=== PATIENT | female | born 1970 | race African-American/Black ===

== ENCOUNTER 2019-04-12 09:59 | Outpatient (CLI) | payer OTHER | END 2019-04-12 10:00 | disposition home or self-care (01) | LOC: DTY/OP 09:59 | PROVIDERS: ATTEND Specialist | DX: Z01.818 Encounter for other preprocedural examination (principal); E66.01 Morbid (severe) obesity due to excess calories | CPT/HCPCS: 97802 ==

== ENCOUNTER 2019-05-13 15:15 | Outpatient (CLI) | payer MEDICARE ==
--- NOTE | 2019-05-13 17:08 | MMO ---
Bilateral MAMMO Bilat Screen [facility]. CLINICAL HISTORY: Patient is 48 years old and is seen for screening. The patient has no family history of breast cancer. The patient has no personal history of cancer. VIEWS: The views performed were: bilateral craniocaudal with tomosynthesis and bilateral mediolateral oblique with tomosynthesis. This study has been interpreted with the assistance of computer-aided detection. MAMMOGRAM FINDINGS: There are scattered fibroglandular densities. There is an oval mass measuring 13 millimeters seen in the upper-outer region of the left breast. In the right breast, there are no suspicious masses, calcifications or areas of architectural distortion. IMPRESSION: MASS IN THE LEFT BREAST REQUIRES ADDITIONAL EVALUATION. AN ULTRASOUND EXAM IS RECOMMENDED. THE RESULTS OF THIS EXAM WERE SENT TO THE PATIENT. ACR BI-RADS Category 0 - Incomplete: Need additional imaging evaluation. [facility] will notify the patient of the need for additional imaging services. MAMMOGRAPHY NOTE: 1. A negative mammogram report should not delay a biopsy if a dominant of clinically suspicious mass is present. 2. Approximately 10% to 15% of breast cancers are not detected by mammography. 3. Adenosis and dense breasts may obscure an underlying neoplasm. Reported by: MARY BETH DORSEY MD Electonically Signed: [id number]
== END 2019-05-13 15:16 | disposition home or self-care (01) ==
LOC: BICMAMMO 15:15
PROVIDERS: ATTEND Family Medicine
DX: Z12.31 Encounter for screening mammogram for malignant neoplasm of breast (principal); N63.21 Unspecified lump in the left breast, upper outer quadrant
CPT/HCPCS: 77063; 77067

== ENCOUNTER 2019-05-17 10:36 | Outpatient (CLI) | payer MEDICARE ==
--- NOTE | 2019-05-17 11:51 | ULT ---
LIMITED LEFT BREAST ULTRASOUND: DATE: 05/17/2019. PROVIDED CLINICAL HISTORY: Abnormal screening mammogram. FINDINGS: Limited sonographic interrogation is performed of the left breast in the region of concern on the scr eening mammogram of 05/13/2019. Screening mammographic images were reviewed and correlated with sonog nicki performed today. A 1.3 cm intramammary lymph node is seen at the 2 o'clock position of the lef t breast, corresponding to the mammographic abnormality. IMPRESSION: BIRADS category 2 - benign findings. Annual screening mammography recommended. POS: OFF
== END 2019-05-17 10:37 | disposition home or self-care (01) ==
LOC: BICULT 10:36
PROVIDERS: ATTEND Family Medicine
DX: N63.20 Unspecified lump in the left breast, unspecified quadrant (principal)

== ENCOUNTER 2019-07-02 08:21 | Outpatient (CLI) | payer MEDICARE ==
[2019-07-02 12:21] LABS: Hemoglobin 17.2 g/dL (12.0-16.0); Mean Corpuscular HGB CONC 30.6 g/dL (32.0-36.0); Mean Corpuscular Hemoglobin 28.6 pg (27.0-31.0); Mean Corpuscular Volume 93.3 fL (78.0-98.0); Mean Platelet Volume 11.8 fL (7.4-10.4); Platelet Count 171 thou/uL (130-400); RBC Distribution Width 15.9 % (11.5-14.5); Red Blood Cell (RBC) Count 6.03 mill/uL (4.20-5.40); White Blood Cell (WBC) Count 6.5 thou/uL (4.8-10.8)
[2019-07-02 12:42] LABS: Anion Gap 13 mmol/L (10-20); BUN (Urea Nitrogen) 10 mg/dL (7.0-18.7); Calc. Creatinine Clearance 0 mL/min (70-130); Carbon Dioxide 29 mmol/L (22-29); Chloride 103 mmol/L (98-107); Estimated GFR-MDRD Greater than 90; Glucose 87 mg/dL (70-105); Potassium 3.8 mmol/L (3.5-5.1); Sodium 141 mmol/L (136-145)
--- NOTE | 2019-07-05 18:56 | EKG ---
Test Reason : Blood Pressure : / mmHG Vent. Rate : 065 BPM Atrial Rate : 065 BPM P-R Int : 224 ms QRS Dur : 092 ms QT Int : 432 ms P-R-T Axes : 072 098 016 degrees QTc Int : 449 ms Electronic atrial pacemaker Rightward axis Borderline ECG No previous ECGs available Confirmed by DR. Argentina MORALES MD ([id number]) on 07/05/2019 6:56:45 PM Referred By: CHRISTOPHER Confirmed By:DR. Argentina MORALES MD
== END 2019-07-02 08:22 | disposition home or self-care (01) ==
LOC: LABBT 08:21
PROVIDERS: ATTEND Specialist
DX: Z01.818 Encounter for other preprocedural examination (principal); E66.01 Morbid (severe) obesity due to excess calories
CPT/HCPCS: 80048; 85027; 93005; 93010

== ENCOUNTER 2019-07-02 10:00 | Inpatient (IN) | payer MEDICARE ==
[2019-07-02 11:17] VITALS: BMI 56.8
[2019-07-06] MEDS ORDERED: Ketorolac Tromethamine 30 MG/ML VIAL ONE (06:17)
[2019-07-06] MEDS ORDERED: ceFOXitin 2 GM/50 ML Duplex BAG ONE (06:17)
[2019-07-06] MEDS ORDERED: Heparin 5,000 UNITS/ML VIAL ONE (06:17)
[2019-07-06] MEDS ORDERED: Scopolamine 1.5 mg/72 hour Patch ONE (06:17)
[2019-07-06] MEDS ORDERED: Lidocaine 1% w/Epinephrine 1:100K 20 ML VIAL ONE (06:55)
[2019-07-06] MEDS ORDERED: Bupivacaine 0.25% HCL 30 ML VIAL ONE (06:55)
[2019-07-06] MEDS ORDERED: Fentanyl 100 MCG/2 ML VIAL ONE ×4 (06:56→13:53)
[2019-07-06] MEDS ORDERED: Acetaminophen 500 MG TAB ONE (07:07)
[2019-07-06] MEDS ORDERED: HYDROmorphone 0.5 MG/0.5 ML SYRINGE ONE (07:24)
[2019-07-06] MEDS ORDERED: PHENYLEPHRINE-NS 100 MCG/ML 10 ML SYRINGE ONE ×2 (08:39→11:51)
[2019-07-06] MEDS ORDERED: ePHEDrine/0.9% NaCl/PF SYRINGE 50 mg/10 ml ONE ×2 (08:39→11:51)
[2019-07-06] MEDS ORDERED: SUGAMMADEX SODIUM 200 MG/2 ML VIAL ONE (09:00)
[2019-07-06] MEDS ORDERED: Promethazine HCl 25 MG/ML VIAL ONE (10:05)
[2019-07-06] MEDS ORDERED: Ondansetron PF 4 MG/2 ML Vial ONE ×2 (10:05→11:51)
[2019-07-06] MEDS ORDERED: Promethazine HCl 25 MG/ML VIAL IM PRN (11:02)
[2019-07-06] MEDS ORDERED: Promethazine HCl 25 MG/ML VIAL SLOW IVP PRN (11:02)
[2019-07-06] MEDS ORDERED: Ondansetron HCl/PF 4 MG/2 ML Vial IVP PRN (11:02)
[2019-07-06] MEDS ORDERED: D5 1/2 NS w/20 mEq KCL 1,000 ML ONE (11:37)
[2019-07-06] MEDS ORDERED: Rocuronium Bromide 10 MG/ML (10ML VIAL) ONE (11:51)
[2019-07-06] MEDS ORDERED: Dexamethasone 20 MG/5 ML VIAL ONE (11:51)
[2019-07-06] MEDS ORDERED: PROPOFOL 200 MG/20 ML VIAL ONE (11:51)
[2019-07-06] MEDS ORDERED: Lidocaine 1% PF 5 ML VIAL ONE (11:51)
--- NOTE | 2019-07-06 13:46 | OP ---
DATE OF PROCEDURE: 07/06/2019 PREOPERATIVE DIAGNOSIS: Morbid obesity. POSTOPERATIVE DIAGNOSIS: Morbid obesity. PROCEDURE PERFORMED: Laparoscopic vertical sleeve gastrectomy using the ViSiGi device. ANESTHESIA: General endotracheal. UROLOGY PHYSICIAN: Mame Medellin, medical student. INDICATIONS: The patient is a 48-year-old morbidly obese black female. She has a preoperative BMI of 57. She was taken to the operating room at this time for weight loss surgery. DESCRIPTION OF OPERATION: Informed consent was obtained. The patient was taken to the operating room where general endotracheal anesthesia was obtained with the patient in supine position. Abdomen was prepped with ChloraPrep and draped in sterile fashion. Local anesthetic was infiltrated and 5 mm supraumbilical incision was created through which Veress needle was passed to the peritoneal cavity and pneumoperitoneum established using carbon dioxide up to a pressure of 15 mmHg. A 5 mm trocar port was passed through this same incision. Laparoscopic camera was passed through this port. Under direct vision, 4 additional ports were placed including bilateral 5 mm subcostal ports, a 12 mm right paramedian port and a 15 mm left paramedian port. A 5 mm epigastric incision was created through which Nathansen retractor was passed into the abdominal cavity and used to retract the left lobe of the liver. The patient was placed into reverse Trendelenburg position. The ViSiGi device was advanced within the stomach and used to decompress this. The pylorus was identified and beginning 4 cm proximal to the pylorus, the omentum and vascular tissue along the greater curvature was divided using the LigaSure in an ascending fashion up to the angle of His. All posterior adhesions were mobilized. The short gastric vessels were carefully divided and then hemostasis was maintained using the LigaSure. Once this was completely mobilized, the ViSiGi was carefully positioned at the level of the pylorus and placed to suction, which was clearly defining the lesser curvature of the stomach. The gastrectomy was then performed using a series of fires of the [place] stapler using a green load followed by a gold load and a series of blue loads until completion of the gastrectomy. The ViSiGi along the lesser curvature was used as a size 36 bougie to guide in the gastric division. Care was taken to avoid narrowing the incisura or the gastroesophageal junction. The integrity of the staple line was then assessed by insufflating gas through the ViSiGi while irrigating along the staple line. There was no evidence of an air leak. There was no evidence of bleeding along the staple line. The resected stomach was then removed through the 15 mm port and the fascia was closed with 0 Vicryl suture using a GraNee needle. I then closed the 12 mm port also using the GraNee needle and 0 Vicryl suture. The Nathansen retractor was removed. All ports and instruments were removed under direct vision. All irrigant was aspirated. Pneumoperitoneum was carefully evacuated. 0.25% Marcaine with epinephrine was infiltrated into each port site. Skin edges approximated with 4-0 Monocryl subcuticular suture. Dermabond was placed externally. There were no complications. The patient tolerated the procedure well and was taken to recovery room in stable condition. FINDINGS: The patient had a markedly enlarged liver. It did not have fatty changes as she had lost a substantial amount of weight preoperatively, however, the liver draped extensively down over the stomach. There were also unusual amounts of vascularity along the greater curvature, in the retroperitoneum, and a band connecting the duodenum to the liver on the anterior aspect. Each of these required more work than typical to obtain appropriate hemostasis during the course of division. She did not have markedly enlarged vessels that would be typical of portal hypertension. The operation was performed safely with a total of approximately 100 mL of blood loss. There was complete hemostasis at the end of the operation. There were no complications. The patient was stable and tolerated the procedure well, taken to the recovery in stable condition. Job ID: [id number]
[2019-07-06] MEDS ORDERED: Morphine 2 MG/ML SYRINGE SLOW IVP PRN (14:48)
[2019-07-06] MEDS ORDERED: Dextrose 5% in Water 1,000 ML IV PRN (14:48)
[2019-07-06] MEDS ORDERED: diphenhydrAMINE 50 MG/ML VIAL IVP PRN (14:48)
[2019-07-06] MEDS ORDERED: Dextrose 50% Abboject 50 ML SYRINGE SLOW IVP PRN (14:48)
[2019-07-06] MEDS ORDERED: D5 1/2 NS w/20 mEq KCL 1,000 ML IV SCH (14:48)
[2019-07-06] MEDS ORDERED: hydrALAZINE 20 MG/ML VIAL SLOW IVP PRN (14:48)
[2019-07-06] MEDS: Morphine 4 MG/ML VIAL SLOW IVP PRN ×2 (15:25→19:24)
[2019-07-06] MEDS ORDERED: Pantoprazole 40 MG VIAL IVP SCH (15:30)
[2019-07-06] MEDS: Promethazine HCl 25 MG/ML VIAL IM PRN ×2 (15:31→19:24)
[2019-07-06] MEDS: Ketorolac Tromethamine 30 MG/ML VIAL IVP SCH ×2 (17:54→23:42)
[2019-07-06] MEDS ORDERED: Sodium Chloride 0.9% 1,000 ML IV SCH (21:00)
[2019-07-06 21:10] LABS: #Lymphocytes 0.5 thou/uL (1.20-3.40); #Monocytes 0.2 thou/uL (0.11-0.59); #Neutrophils 10.1 thou/uL (1.40-6.50); %Basophils 0.2 % (0.0-1.0); %Eosinophils 0.3 % (0.0-10.0); %Lymphocytes 4.5 % (21.0-51.0); %Monocytes 1.7 % (0.0-10.0); %Neutrophils 93.2 % (42.0-75.0); Hemoglobin 15.4 g/dL (12.0-16.0); Mean Corpuscular HGB CONC 31.2 g/dL (32.0-36.0); Mean Corpuscular Hemoglobin 29.8 pg (27.0-31.0); Mean Corpuscular Volume 95.5 fL (78.0-98.0); Mean Platelet Volume 10.7 fL (7.4-10.4); Platelet Count 143 thou/uL (130-400); RBC Distribution Width 14.9 % (11.5-14.5); Red Blood Cell (RBC) Count 5.15 mill/uL (4.20-5.40); White Blood Cell (WBC) Count 10.9 thou/uL (4.8-10.8)
[2019-07-06 21:25] LABS: Anion Gap 12 mmol/L (10-20); BUN (Urea Nitrogen) 14 mg/dL (7.0-18.7); Calc. Creatinine Clearance 184 mL/min (70-130); Calcium 7.7 mg/dL (7.8-10.44); Carbon Dioxide 28 mmol/L (22-29); Chloride 101 mmol/L (98-107); Estimated GFR-MDRD 84; Glucose 194 mg/dL (70-105); Potassium 3.6 mmol/L (3.5-5.1); Sodium 137 mmol/L (136-145)
[2019-07-06] MEDS: NS 0.9% w/ 20 MEQ KCL 1,000 ML IV SCH (21:58)
[2019-07-06] MEDS: Enoxaparin Sodium 40 MG/0.4 ML SYRINGE SC SCH (22:19)
[2019-07-07] MEDS: NS 0.9% w/ 20 MEQ KCL 1,000 ML IV SCH ×4 (03:05→23:24)
[2019-07-07 05:30] LABS: #Lymphocytes 0.9 thou/uL (1.20-3.40); #Monocytes 0.6 thou/uL (0.11-0.59); #Neutrophils 10.3 thou/uL (1.40-6.50); %Basophils 0.1 % (0.0-1.0); %Lymphocytes 7.2 % (21.0-51.0); %Monocytes 4.9 % (0.0-10.0); %Neutrophils 87.8 % (42.0-75.0); Hemoglobin 15.6 g/dL (12.0-16.0); Mean Corpuscular HGB CONC 29.3 g/dL (32.0-36.0); Mean Corpuscular Hemoglobin 28.5 pg (27.0-31.0); Mean Corpuscular Volume 97.4 fL (78.0-98.0); Mean Platelet Volume 10.8 fL (7.4-10.4); Platelet Count 156 thou/uL (130-400); RBC Distribution Width 14.8 % (11.5-14.5); Red Blood Cell (RBC) Count 5.45 mill/uL (4.20-5.40); White Blood Cell (WBC) Count 11.8 thou/uL (4.8-10.8)
[2019-07-07 05:43] LABS: Anion Gap 12 mmol/L (10-20); BUN (Urea Nitrogen) 12 mg/dL (7.0-18.7); Calc. Creatinine Clearance 208 mL/min (70-130); Calcium 7.5 mg/dL (7.8-10.44); Carbon Dioxide 27 mmol/L (22-29); Chloride 105 mmol/L (98-107); Estimated GFR-MDRD Greater than 90; Glucose 106 mg/dL (70-105); Potassium 4.7 mmol/L (3.5-5.1); Sodium 139 mmol/L (136-145)
[2019-07-07] MEDS: Ketorolac Tromethamine 30 MG/ML VIAL IVP SCH ×4 (05:54→23:24)
--- NOTE | 2019-07-07 06:03 | PDOC.GSPN ---
Surgery Progress Note: Subj - Subjective Narrative: Mrs. Jordan is POD 1 from a laparoscopic sleeve gastrectomy. Her nurse reports that overnight she became hypotensive after a dose of morphine. She was given 1 L NS with 20 mEq KCl and since then she has remained normotensive. She is currently not receiving any IV fluids. Overnight, her nurse also reports that her O2 sat dropped into the 70s while she was sleeping despite being on CPAP. This morning, she was resting comfortably. She reports that her pain is a 7/10 and increases to 10/10 with movement. Nurse has been holding morphine to avoid dropping her BP again and she is currently only receiving IV Toradol. She reports some nausea when eating broth, but denies any nausea. She was able to ambulate several laps yesterday, but had to stop once to rest due to dizziness. She is voiding without difficulty and has not yet had a bowel movement. Surgery Progress Note: Obj - Vital signs Vital signs: Vital Signs - Most Recent Temp Pulse Resp BP Pulse Ox 97.5 F L 75 16 115/74 98 07/07/19 03:36 07/07/19 03:36 07/07/19 03:36 07/07/19 03:36 07/07/19 03:36 - Physical Exam General: no distress, obese Cardiovascular: regular rate and rhythm, no murmur Respiratory: clear to auscultation, normal respiratory effort (on CPAP) Abdomen: soft, nondistended (obese abdomen), positive bowel sounds (NABS), appropriately tender Wound: healing well. negative: drainage, erythma/edema (all incisions healing appropriately and) Surgery Progress Note: Results - Labs Result Diagrams: 07/07/19 05:07 07/07/19 05:06 Surgery Progress Note: A/P - Problem (1) S/P laparoscopic sleeve gastrectomy Current Visit: Yes Code(s): Z98.84 - BARIATRIC SURGERY STATUS Status: Acute - Plan Plan: Patient is POD 1 from laparoscopic sleeve gastrectomy. Her BP and O2 sat appear to have stabilized at this point. Plan to continue monitoring this throughout the day and replace fluids as needed to maintain BP. We will avoid morphine at this time to prevent another hypotensive episode and add PO Tylenol in addition to her IV Toradol for pain control. We will continue her bariatric clear liquid diet and offer Zofran prn for nausea. Patient to continue ambulating today. Will continue prophylactic Lovenox SC while she is here. Plan to monitor patient today with the potential of discharging later today if her pain, nausea , and BP remain stable. If not, we will keep patient here until tomorrow and plan for discharge at that time.
[2019-07-07] MEDS ORDERED: traMADol HCl 50 MG TAB PO PRN ×2 (06:22)
[2019-07-07] MEDS ORDERED: Acetaminophen 650 MG/20.3 ML UDCUP PO PRN (06:23)
[2019-07-07] MEDS: Isosorbide Dinitrate 20 MG TAB PO SCH (08:06)
[2019-07-07] MEDS: Aspirin Chewable 81 MG TAB PO SCH (08:54)
[2019-07-07] MEDS: Pantoprazole 40 MG VIAL IVP SCH (08:55)
[2019-07-07] MEDS ORDERED: Isosorbide Dinitrate 20 MG TAB PO SCH (09:00)
[2019-07-07] MEDS ORDERED: Carvedilol 6.25 MG TAB PO SCH ×2 (09:00)
[2019-07-07] MEDS: Ondansetron PF 4 MG/2 ML Vial IVP PRN ×3 (10:05→18:37)
[2019-07-07] MEDS: Furosemide 20 MG TAB PO SCH (10:28)
--- NOTE | 2019-07-07 13:36 | PRG ---
DATE OF SERVICE: 07/07/2019 Ms. Jordan is postoperative day #1 from an uneventful laparoscopic sleeve gastrectomy yesterday. Please see progress note from medical student, Vignesh, earlier today. In summary, she was hypotensive overnight, but her blood pressure responded nicely to fluid bolus and she was stable for the rest of the evening. This morning, on examination, she had a benign abdomen and seemed to be clinically stable. Her laboratory studies both last night and this morning were unremarkable. Her IV fluids were dropped down to 100 mL/h this morning. She has had some difficulty advancing her diet to appropriate volumes. She has been walking on the floor somewhat. In light of her hypotension last night, I believe she would be better served by observation today to ensure that she is stable prior to discharge. I will continue to encourage her to take her clear liquids and ambulate and will follow up with laboratory studies in the morning as well. Hopefully, she will be stable for discharge home in the morning. Job ID: [id number]
[2019-07-07] MEDS: Enoxaparin Sodium 40 MG/0.4 ML SYRINGE SC SCH (20:38)
[2019-07-08] MEDS: Ondansetron PF 4 MG/2 ML Vial IVP PRN (02:54)
[2019-07-08 05:29] LABS: Anion Gap 12 mmol/L (10-20); BUN (Urea Nitrogen) 14 mg/dL (7.0-18.7); Calc. Creatinine Clearance 235 mL/min (70-130); Calcium 7.5 mg/dL (7.8-10.44); Carbon Dioxide 25 mmol/L (22-29); Chloride 109 mmol/L (98-107); Estimated GFR-MDRD Greater than 90; Glucose 84 mg/dL (70-105); Potassium 4.4 mmol/L (3.5-5.1); Sodium 142 mmol/L (136-145)
[2019-07-08 05:35] LABS: #Lymphocytes 1.2 thou/uL (1.20-3.40); #Monocytes 0.8 thou/uL (0.11-0.59); %Basophils 0.1 % (0.0-1.0); %Eosinophils 0.4 % (0.0-10.0); %Lymphocytes 13.3 % (21.0-51.0); %Monocytes 8.6 % (0.0-10.0); %Neutrophils 77.6 % (42.0-75.0); Hemoglobin 14.6 g/dL (12.0-16.0); Mean Corpuscular HGB CONC 30.7 g/dL (32.0-36.0); Mean Corpuscular Hemoglobin 29.7 pg (27.0-31.0); Mean Corpuscular Volume 96.7 fL (78.0-98.0); Mean Platelet Volume 11.3 fL (7.4-10.4); Platelet Count 113 thou/uL (130-400); RBC Distribution Width 14.7 % (11.5-14.5); Red Blood Cell (RBC) Count 4.91 mill/uL (4.20-5.40); White Blood Cell (WBC) Count 9.1 thou/uL (4.8-10.8)
[2019-07-08] MEDS: Ketorolac Tromethamine 30 MG/ML VIAL IVP SCH ×2 (06:23→11:57)
[2019-07-08] MEDS: Aspirin Chewable 81 MG TAB PO SCH (09:01)
[2019-07-08] MEDS: Isosorbide Dinitrate 20 MG TAB PO SCH (09:01)
[2019-07-08] MEDS: Furosemide 20 MG TAB PO SCH (09:01)
[2019-07-08] MEDS: Pantoprazole 40 MG VIAL IVP SCH (09:01)
--- NOTE | 2019-07-08 09:35 | DIS ---
DATE OF ADMISSION: 07/06/2019 DATE OF DISCHARGE: 07/08/2019 ADMISSION HISTORY: The patient is a 48-year-old morbidly obese black female with a BMI of 57 at the time of admission. HOSPITAL COURSE: She underwent uneventful sleeve gastrectomy on the morning of her admission. However, later that day, she developed hypotension. This resolved with fluid administration and the etiology appeared to be hypovolemia. She has subsequently been stable. Her blood pressure has been within normal limits in spite of discontinuing her antihypertensives. She has been able to ambulate and tolerate liquids without vomiting. She has remained hemodynamically stable. Her laboratory studies remain within normal limits and her hemoglobin was 15 yesterday and is 14 today. Her electrolytes are also normal. She has felt to be doing well at this point and is stable for discharge home. She was given extensive instructions regarding fluid intake and ambulation. In regard to her discharge medications, I asked her to discontinue her furosemide and her isosorbide dinitrate that she was taking when she was admitted to the hospital. She is to continue her carvedilol and her aspirin. I will see her in my office in 2 weeks for followup. She was given a prescription for tramadol for discharge. Job ID: [id number]
[2019-07-08 17:00] VITALS: BP 110/65; TEMP 97.4
== END 2019-07-08 17:14 | disposition home or self-care (01) | DRG 621 ==
LOC: SURG A 07-06 05:53 → SURG B 07-06 14:49
PROVIDERS: ADMIT Specialist; ATTEND Specialist
PROC: 0DB64Z3 Excision of Stomach, Percutaneous Endoscopic Approach, Vertical (ICD-10-PCS; principal; 2019-07-06)
DX: E66.01 Morbid (severe) obesity due to excess calories (principal); Z68.43 Body mass index [BMI] 50.0-59.9, adult; I95.9 Hypotension, unspecified; E86.1 Hypovolemia; R16.0 Hepatomegaly, not elsewhere classified
CPT/HCPCS: 36415; 80048; 85025; 88307; 88312; C9113; J0694; J1100; J1170; J1644; J1650; J1885; J2001; J2270; J2405; J2550; J2704; J3010; J3480; S0020

== ENCOUNTER 2019-09-22 17:02 | Emergency (ER) | payer MEDICARE ==
[~2019-09-22 17:02] MED LIST: Iopamidol 370 76% 50 ML VIAL FS ONE; Iopamidol-370 76% 500 ML 1 ML ONE
[2019-09-22 17:53] LABS: #Basophils 0.1 thou/uL (0.0-0.2); #Eosinphils 0.1 thou/uL (0.0-0.7); #Lymphocytes 1.8 thou/uL (1.20-3.40); #Monocytes 0.5 thou/uL (0.11-0.59); #Neutrophils 2.7 thou/uL (1.40-6.50); %Basophils 2.6 % (0.0-1.0); %Eosinophils 1.1 % (0.0-10.0); %Lymphocytes 35.2 % (21.0-51.0); %Monocytes 9.9 % (0.0-10.0); %Neutrophils 51.3 % (42.0-75.0); Hemoglobin 13.7 g/dL (12.0-16.0); Mean Corpuscular HGB CONC 31.5 g/dL (32.0-36.0); Mean Corpuscular Hemoglobin 30.5 pg (27.0-31.0); Mean Corpuscular Volume 96.9 fL (78.0-98.0); Mean Platelet Volume 9.2 fL (7.4-10.4); Platelet Count 199 thou/uL (130-400); RBC Distribution Width 12.7 % (11.5-14.5); Red Blood Cell (RBC) Count 4.47 mill/uL (4.20-5.40); White Blood Cell (WBC) Count 5.2 thou/uL (4.8-10.8)
[2019-09-22] MEDS ORDERED: Ondansetron PF 4 MG/2 ML Vial ONE (18:09)
[2019-09-22] MEDS ORDERED: Fentanyl 100 MCG/2 ML VIAL ONE (18:09)
[2019-09-22 18:13] LABS: ALT (SGPT) 23 U/L (8-55); AST (SGOT) 26 U/L (5-34); Albumin 4.1 g/dL (3.5-5.0); Alkaline Phosphatase 54 U/L (40-110); Anion Gap 18 mmol/L (10-20); BUN (Urea Nitrogen) 16 mg/dL (7.0-18.7); Bilirubin, Total 1.5 mg/dL (0.2-1.2); Calc. Creatinine Clearance 0 mL/min (70-130); Calcium 9.7 mg/dL (7.8-10.44); Carbon Dioxide 30 mmol/L (22-29); Chloride 96 mmol/L (98-107); Estimated GFR-MDRD 63; Globulin 3.9 g/dL (2.4-3.5); Glucose 84 mg/dL (70-105); Lipase 56 U/L (8-78); Sodium 141 mmol/L (136-145)
[2019-09-22 18:17] LABS: Potassium 2.7 mmol/L (3.5-5.1)
--- NOTE | 2019-09-22 19:09 | CT ---
CT chest with IV contrast CT abdomen and pelvis with IV contrast HISTORY: Pain. FINDINGS: No focal parenchymal lung mass or infiltrate. Tiny nonspecific subpleural groundglass nodul e at the left lateral lung base. Left subclavian cardiac electronic device partially visualized. No mediastinal adenopathy. Bovine origin of the great vessels at the aortic arch. Large amount of oral contrast is apparent throughout the esophagus. Postoperative changes of the stom ach may represent bariatric surgery. A 1.8 cm cyst is present at the medial segment left liver lobe near the falciform ligament. Additiona l tiny low-density lesions scattered throughout the liver are too small to characterize and likely represent additional cysts. Small amount of hyperdense material present within the dependent portion of the gallbladder lumen. No evidence of inflammation. There are tiny calcifications associated with nondilated calyces of each kidney, none larger than 2 m m. Small amount of fat into an umbilical hernia that does not contain bowel. Uterus measures up to 12.8 cm and demonstrates heterogeneous density and contour with the appearance of multiple fibroids. No evidence of bowel obstruction or inflammation. Appendix normal. IMPRESSION : Bariatric surgery. Large amount of gastroesophageal reflux. No evidence of bowel obstruction. Tiny nonobstructing bilateral renal calculi. Prominent fibroid involvement of the enlarged uterus.
[2019-09-22] MEDS ORDERED: Multivitamins, Adult 10 ML, Thiamine HCl 100 MG, Folic Acid 1 MG in Dextrose 5 %-0.45 %... IV SCH (19:15)
[2019-09-22] MEDS ORDERED: FOLIC ACID IV SCH (19:30)
[2019-09-22] MEDS ORDERED: THIAMINE HCL IV SCH (19:30)
[2019-09-22] MEDS ORDERED: MULTIVITAMINS IV SCH (19:30)
[2019-09-22] MEDS ORDERED: [UNRECOGNIZED DRUG - OTHER] IV SCH (19:30)
[2019-09-22] MEDS ORDERED: Metoclopramide HCl 10 MG/2 ML VIAL ONE (20:17)
[2019-09-22] MEDS ORDERED: Potassium Chloride 20 MEQ TAB ONE (21:05)
--- NOTE | 2019-09-25 09:49 | EKG ---
Test Reason : Blood Pressure : / mmHG Vent. Rate : 065 BPM Atrial Rate : 113 BPM P-R Int : 000 ms QRS Dur : 080 ms QT Int : 450 ms P-R-T Axes : 000 004 -22 degrees QTc Int : 468 ms Electronic atrial pacemaker Low voltage QRS Nonspecific ST and T wave abnormality Prolonged QT Abnormal ECG Confirmed by FÉLIX HOYT DO ([id number]), film and video editor CYNTHIA PEARCE ([id number]) on 09/25/2019 9:49:24 AM Referred By: Confirmed By:FÉLIX HOYT DO
== END 2019-09-22 22:00 | disposition home or self-care (01) ==
LOC: ERS 17:02
DX: E87.6 Hypokalemia (principal); R11.2 Nausea with vomiting, unspecified; R10.9 Unspecified abdominal pain; Z79.891 Long term (current) use of opiate analgesic; Z79.82 Long term (current) use of aspirin; Z79.899 Other long term (current) drug therapy
CPT/HCPCS: 71260; 74177; 80053; 82150; 83690; 85025; 93005; J2405; J2765; J3010; J3411; J3480; J7042; Q9967 ×2; 96361; 96365; 96366; 96368; 96375

== ENCOUNTER 2020-10-18 22:58 | Emergency (ER) | payer BC, MEDICARE ==
[2020-10-18 23:28] LABS: Pregnancy Test - Urine (BHCG) Negative (Negative); Pregu Control Background? CLEAR/WHITE (CLR/WHITE); Pregu Control Bar Appear? YES (CONTROL BAR)
[2020-10-18 23:29] LABS: #Basophils 0.2 thou/uL (0.0-0.2); #Eosinphils 0.1 thou/uL (0.0-0.7); #Lymphocytes 3.6 thou/uL (1.20-3.40); #Monocytes 0.6 thou/uL (0.11-0.59); #Neutrophils 3.3 thou/uL (1.40-6.50); %Basophils 2.3 % (0.0-1.0); %Eosinophils 1.6 % (0.0-10.0); %Lymphocytes 45.5 % (21.0-51.0); %Neutrophils 42.5 % (42.0-75.0); Hemoglobin 12.6 g/dL (12.0-16.0); Mean Corpuscular HGB CONC 32.5 g/dL (32.0-36.0); Mean Corpuscular Hemoglobin 31.2 pg (27.0-31.0); Mean Platelet Volume 7.7 fL (7.4-10.4); Platelet Count 231 thou/uL (130-400); RBC Distribution Width 11.8 % (11.5-14.5); Red Blood Cell (RBC) Count 4.04 mill/uL (4.20-5.40); White Blood Cell (WBC) Count 7.8 thou/uL (4.8-10.8)
[2020-10-18 23:33] LABS: Bacteria/HPF None Seen HPF (None Seen); Bilirubin Negative (Negative); Blood, Urine Negative (Negative); Calcium Oxalate Crystals 4+ HPF (None Seen); Clarity Turbid (Clear); Glucose, Urine (Dipstick) Normal (Negative); Ketone, Urine Negative (Negative); Leukocyte 500 Leu/uL (Negative); Nitrite Negative (Negative); Protein, Urine (Dipstick) 50 mg/dL (Neg-Trace); Specific Gravity, Urine 1.033 (1.002-1.036); Squamous Epithelial 0-3 HPF (0-3); Urobilinogen 3 mg/dL (Less than 2); WBC/HPF 21-50 HPF (0-3)
[2020-10-18 23:34] LABS: Specific Gravity 1.033 (1.002-1.036)
[2020-10-18 23:52] LABS: Chloride 107 mmol/L (98-107); Potassium 3.7 mmol/L (3.5-5.1); Sodium 141 mmol/L (136-145)
[2020-10-18 23:53] LABS: ALT (SGPT) 11 U/L (8-55); AST (SGOT) 20 U/L (5-34); Albumin 3.8 g/dL (3.5-5.0); Alkaline Phosphatase 82 U/L (40-110); Anion Gap 16 mmol/L (10-20); BUN (Urea Nitrogen) 16 mg/dL (7.0-18.7); Bilirubin, Total 0.6 mg/dL (0.2-1.2); Calc. Creatinine Clearance 0 mL/min (70-130); Carbon Dioxide 22 mmol/L (22-29); Globulin 3.6 g/dL (2.4-3.5); Glucose 144 mg/dL (70-105); Lipase 84 U/L (8-78); Protein, Total 7.4 g/dL (6.0-8.3)
[2020-10-19] MEDS ORDERED: Morphine 4 MG/ML VIAL ONE (00:10)
[2020-10-19] MEDS ORDERED: Ondansetron PF 4 MG/2 ML Vial ONE (00:10)
[2020-10-19] MEDS ORDERED: Ketorolac Tromethamine 30 MG/ML VIAL ONE (01:58)
[2020-10-19] MEDS ORDERED: Iopamidol-370 76% 500 ML 1 ML ONE (14:40)
== END 2020-10-19 05:44 | disposition home or self-care (01) ==
LOC: ERS 22:58
DX: K80.20 Calculus of gallbladder without cholecystitis without obstruction (principal); N39.0 Urinary tract infection, site not specified; I10 Essential (primary) hypertension
CPT/HCPCS: 36415; 74177; 76705; 80053; 81003; 81015; 81025; 83690; 84484; 85025; 87086; 93005; 96374; 96375; J1885; J2270; J2405; Q9967

== ENCOUNTER 2020-11-16 06:58 | Day surgery (SDC) | payer MEDICARE ==
[2020-11-16] MEDS ORDERED: Bupivacaine 0.25% HCL 30 ML VIAL ONE (07:07)
[2020-11-16] MEDS ORDERED: Lidocaine 1% w/Epinephrine 1:100K 20 ML VIAL ONE (07:07)
[2020-11-16] MEDS ORDERED: Ketorolac Tromethamine 30 MG/ML VIAL ONE (07:13)
[2020-11-16] MEDS ORDERED: Acetaminophen 500 MG TAB ONE (07:13)
[2020-11-16 07:49] LABS: #Basophils 0.1 thou/uL (0.0-0.2); #Eosinphils 0.1 thou/uL (0.0-0.7); #Lymphocytes 1.7 thou/uL (1.20-3.40); #Monocytes 0.3 thou/uL (0.11-0.59); #Neutrophils 1.7 thou/uL (1.40-6.50); %Basophils 2.4 % (0.0-1.0); %Eosinophils 2.7 % (0.0-10.0); %Lymphocytes 43.2 % (21.0-51.0); %Monocytes 7.8 % (0.0-10.0); %Neutrophils 43.9 % (42.0-75.0); Hemoglobin 12.3 g/dL (12.0-16.0); Mean Corpuscular HGB CONC 34.6 g/dL (32.0-36.0); Mean Corpuscular Hemoglobin 32.6 pg (27.0-31.0); Mean Corpuscular Volume 94.3 fL (78.0-98.0); Mean Platelet Volume 7.7 fL (7.4-10.4); Platelet Count 173 thou/uL (130-400); RBC Distribution Width 11.7 % (11.5-14.5); Red Blood Cell (RBC) Count 3.76 mill/uL (4.20-5.40)
[2020-11-16 08:11] LABS: ALT (SGPT) 13 U/L (8-55); AST (SGOT) 16 U/L (5-34); Albumin 3.8 g/dL (3.5-5.0); Alkaline Phosphatase 73 U/L (40-110); Anion Gap 9 mmol/L (10-20); BUN (Urea Nitrogen) 14 mg/dL (7.0-18.7); Bilirubin, Total 0.8 mg/dL (0.2-1.2); Calc. Creatinine Clearance 0 mL/min (70-130); Calcium 9.1 mg/dL (7.8-10.44); Carbon Dioxide 28 mmol/L (22-29); Chloride 107 mmol/L (98-107); Globulin 3.2 g/dL (2.4-3.5); Glucose 84 mg/dL (70-105); Sodium 141 mmol/L (136-145)
[2020-11-16] MEDS ORDERED: Fentanyl 100 MCG/2 ML VIAL ONE ×2 (09:40→11:18)
[2020-11-16] MEDS ORDERED: PROPOFOL 200 MG/20 ML VIAL ONE (10:00)
[2020-11-16] MEDS ORDERED: Lidocaine 1% PF 5 ML VIAL ONE (10:00)
[2020-11-16] MEDS ORDERED: Dexamethasone 20 MG/5 ML VIAL ONE (10:00)
[2020-11-16] MEDS ORDERED: Rocuronium Bromide 10 MG/ML (10ML VIAL) ONE (10:00)
[2020-11-16] MEDS ORDERED: Ondansetron PF 4 MG/2 ML Vial ONE ×2 (10:00→11:20)
[2020-11-16] MEDS ORDERED: PHENYLEPHRINE-NS 100 MCG/ML 10 ML SYRINGE ONE (10:00)
[2020-11-16] MEDS ORDERED: Glycopyrrolate 0.2 MG/ML 5 ML SYRINGE ONE (10:00)
[2020-11-16] MEDS ORDERED: Promethazine HCl 25 MG/ML VIAL ONE (11:34)
[2020-11-16] MEDS ORDERED: Morphine 2 MG/ML VIAL ONE (12:02)
[2020-11-16] MEDS ORDERED: traMADol HCl 50 MG TAB ONE (12:24)
== END 2020-11-16 13:45 | disposition home or self-care (01) ==
LOC: SDC 06:58
PROVIDERS: ATTEND Specialist
PROC: 0FT44ZZ Resection of Gallbladder, Percutaneous Endoscopic Approach (ICD-10-PCS; principal; 2020-11-16)
DX: K80.10 Calculus of gallbladder with chronic cholecystitis without obstruction (principal); J45.909 Unspecified asthma, uncomplicated; I11.9 Hypertensive heart disease without heart failure; E66.01 Morbid (severe) obesity due to excess calories; Z68.37 Body mass index [BMI] 37.0-37.9, adult; Z79.82 Long term (current) use of aspirin; Z79.899 Other long term (current) drug therapy; Z88.5 Allergy status to narcotic agent; Z91.018 Allergy to other foods; Z95.0 Presence of cardiac pacemaker; Z98.84 Bariatric surgery status
CPT/HCPCS: 47562; 80053; 85025; 88304; J2270; J0690; J1100; J1885; J2405; J2550; J2704; J3010; S0020

== ENCOUNTER 2021-02-21 20:53 | Emergency (ER) | payer MEDICARE, BC ==
[2021-02-21] MEDS ORDERED: Acetaminophen 500 MG TAB ONE (22:15)
[2021-02-22 11:52] LABS: SARS-CoV-2 PCR by NAA DETECTED (NotDetected)
== END 2021-02-21 22:19 | disposition home or self-care (01) ==
LOC: ERS 20:53
DX: U07.1 COVID-19 (principal); I10 Essential (primary) hypertension
CPT/HCPCS: 99284; U0003; U0005

== ENCOUNTER 2022-01-31 23:27 | Emergency (ER) | payer BC, MEDICARE, OTHER ==
[2022-02-01 00:20] LABS: #Lymphocytes 0.8 thou/uL (1.20-3.40); #Monocytes 0.5 thou/uL (0.11-0.59); #Neutrophils 5.8 thou/uL (1.40-6.50); %Basophils 0.4 % (0.0-1.0); %Eosinophils 0.3 % (0.0-10.0); %Lymphocytes 10.5 % (21.0-51.0); %Monocytes 7.5 % (0.0-10.0); %Neutrophils 81.3 % (42.0-75.0); Hemoglobin 12.8 g/dL (12.0-16.0); Mean Corpuscular HGB CONC 33.4 g/dL (32.0-36.0); Mean Corpuscular Hemoglobin 31.1 pg (27.0-31.0); Mean Corpuscular Volume 93.3 fL (78.0-98.0); Mean Platelet Volume 8.2 fL (7.4-10.4); Platelet Count 192 thou/uL (130-400); RBC Distribution Width 11.9 % (11.5-14.5); Red Blood Cell (RBC) Count 4.12 mill/uL (4.20-5.40); White Blood Cell (WBC) Count 7.1 thou/uL (4.8-10.8)
[2022-02-01 00:44] LABS: ALT (SGPT) 10 U/L (8-55); AST (SGOT) 14 U/L (5-34); Albumin 4.1 g/dL (3.5-5.0); Alkaline Phosphatase 79 U/L (40-110); Anion Gap 16 mmol/L (10-20); BUN (Urea Nitrogen) 11 mg/dL (7.0-18.7); Bilirubin, Total 1.5 mg/dL (0.2-1.2); Calc. Creatinine Clearance 0 mL/min (70-130); Calcium 9.2 mg/dL (7.8-10.44); Carbon Dioxide 25 mmol/L (22-29); Chloride 103 mmol/L (98-107); Estimated GFR 81; Globulin 3.3 g/dL (2.4-3.5); Glucose 94 mg/dL (70-105); Potassium 3.1 mmol/L (3.5-5.1); Protein, Total 7.4 g/dL (6.0-8.3); Sodium 141 mmol/L (136-145)
[2022-02-01] MEDS ORDERED: Acetaminophen 500 MG TAB ONE (00:56)
[2022-02-01] MEDS ORDERED: Ketorolac Tromethamine 30 MG/ML VIAL ONE (02:00)
[2022-02-01 02:14] LABS: SARS-CoV-2 NAA Rapid Test Not Detected (NotDetected)
[2022-02-01 03:49] LABS: Bacteria/HPF None Seen HPF (None Seen); Bilirubin Negative (Negative); Blood, Urine Negative (Negative); Clarity Clear (Clear); Glucose, Urine (Dipstick) Normal (Negative); Ketone, Urine Negative (Negative); Leukocyte 75 Leu/uL (Negative); Nitrite Negative (Negative); Protein, Urine (Dipstick) Negative (Neg-Trace); RBC/HPF 0-3 HPF (0-3); Squamous Epithelial 0-3 HPF (0-3); Urobilinogen Normal mg/dL (Less than 2); WBC/HPF 21-50 HPF (0-3)
[2022-02-01 03:50] LABS: Pregnancy Test - Urine (BHCG) Negative (Negative); Pregu Control Background? CLEAR/WHITE (CLR/WHITE); Pregu Control Bar Appear? YES (CONTROL BAR)
[2022-02-01] MEDS ORDERED: Iopamidol 370 76% 100 ML VIAL ONE (15:01)
== END 2022-02-01 04:03 | disposition home or self-care (01) ==
LOC: ERS 23:27
DX: N39.0 Urinary tract infection, site not specified (principal); B34.9 Viral infection, unspecified; I10 Essential (primary) hypertension; Z20.822 Contact with and (suspected) exposure to COVID-19; Z95.0 Presence of cardiac pacemaker
CPT/HCPCS: 71045; 74177; 80053; 81025; 83690; 84484; 85025; 87086; 93005; U0002; 36415; 81003; 81015; 96374; J1885; Q9967

== ENCOUNTER 2022-05-16 22:42 | Emergency (ER) | payer OTHER | END 2022-05-17 | disposition left against medical advice (07) | LOC: ERS 22:42 | DX: Z53.21 Procedure and treatment not carried out due to patient leaving prior to being seen by health care provider (principal) ==